=== PATIENT | male | born 1965 | race Caucasian/White ===

== ENCOUNTER 2017-06-09 17:03 | Emergency (ER) | payer SELFPAY ==
[~2017-06-09] VITALS: Ht 167.6 cm; Wt 90.0 kg
[2017-06-09] MEDS ORDERED: SODIUM CHLORIDE FLUSH 10ML SYR IVF ONE (17:30)
[2017-06-09] MEDS ORDERED: ASPIRIN 81 MG TABLET CHEW PO ONE (17:30)
[2017-06-09 17:53] LABS: BASOPHILS # (AUTO) 0.06 x10^3/uL (0-0.1); BASOPHILS % (AUTO) 1 % (0-1); EOSINOPHILS # (AUTO) 0.92 x10^3/uL (0-0.4); EOSINOPHILS % (AUTO) 11 % (1-7); LYMPHOCYTES # (AUTO) 1.46 x10^3/uL (1-3.4); LYMPHOCYTES % (AUTO) 18 % (22-44); MD NO; MEAN CORPUSCULAR HEMOGLOBIN 30.2 pg (27.5-34.5); MEAN CORPUSCULAR HGB CONC 34.5 g/dL (33.2-36.2); MEAN CORPUSCULAR VOLUME 87.5 fL (81-97); MEAN PLATELET VOLUME 9.4 fL (7.4-10.4); MONOCYTES # (AUTO) 0.52 x10^3/uL (0.2-0.8); MONOCYTES % (AUTO) 6 % (2-9); NEUTROPHILS # (AUTO) 5.39 x10^3/uL (1.8-6.8); NEUTROPHILS % (AUTO) 65 % (42-75); PLATELET COUNT 185 x10^3/uL (130-400); RED BLOOD COUNT 5.13 x10^6/uL (4.38-5.82); RED CELL DISTRIBUTION WIDTH 12.2 % (9.4-14.8)
[2017-06-09 18:07] LABS: ALBUMIN 4.1 g/dL (3.4-5.0); ANION GAP 6 mmol/L (5-15); CALCIUM 7.9 mg/dL (8.5-10.1); CHLORIDE 106 mmol/L (98-107)
[2017-06-09 18:12] LABS: ALANINE AMINOTRANSFERASE 52 U/L (12-78); ALKALINE PHOSPHATASE 78 U/L (45-117); BILIRUBIN,TOTAL 0.5 mg/dL (0.2-1.0); CREATININE 0.94 mg/dL (0.7-1.3); TOTAL PROTEIN 7.5 g/dL (6.4-8.2); TROPONIN I < 0.015 ng/mL (0.000-0.045)
[2017-06-09] MEDS ORDERED: ASPIRIN 81 MG TABLET CHEW ONE (18:12)
[2017-06-09] MEDS ORDERED: ONDANSETRON ODT 4 MG ONE (18:12)
[2017-06-09] MEDS ORDERED: MULT-658 PO (18:17)
[2017-06-09] MEDS ORDERED: ONDANSETRON ODT 4 MG PO ONE (18:30)
[2017-06-09 19:26] VITALS: BP 128/87
== END 2017-06-09 19:36 | disposition home or self-care (01) ==
LOC: ED 18:00
DX: R11.2 Nausea with vomiting, unspecified (principal); K20.9 Esophagitis, unspecified
CPT/HCPCS: 36415; 71045; 80053; 84484; 85025; 93005; 99285; Q0162

== ENCOUNTER 2018-05-13 10:07 | Emergency (ER) | payer SELFPAY ==
[~2018-05-13] VITALS: Ht 165.1 cm; Wt 88.3 kg
[~2018-05-13 10:07] MED LIST: MULT-658 PO
[2018-05-13 10:24] VITALS: BP 133/75
--- NOTE | 2018-05-13 10:48 | NUR ---
PATIENT TAKEN TO RAD
[2018-05-13] MEDS ORDERED: DIAZEPAM 5 MG TABLET ONE (10:49)
[2018-05-13] MEDS ORDERED: KETOROLAC 30 MG/1 ML ONE (10:49)
[2018-05-13] MEDS ORDERED: KETOROLAC 30 MG/1 ML IM ONE (11:00)
[2018-05-13] MEDS ORDERED: DIAZEPAM 5 MG TABLET PO ONE (11:00)
--- NOTE | 2018-05-13 11:03 | NUR ---
SHERMAN FROM RAD. MEDICATED
--- NOTE | 2018-05-13 11:21 | NUR ---
SHERMAN REPORTS MINIMAL RELIEF IN PAIN BUT IS NOW ABLE TO LIE IN BED.
== END 2018-05-13 12:02 | disposition home or self-care (01) ==
LOC: ED 11:45
DX: S39.012A Strain of muscle, fascia and tendon of lower back, initial encounter (principal); X58.XXXA Exposure to other specified factors, initial encounter; Y93.89 Activity, other specified; Y92.89 Other specified places as the place of occurrence of the external cause; Y99.8 Other external cause status
CPT/HCPCS: 72110; 96372; 99283; J1885